=== PATIENT | male | born 1990 | race African-American/Black ===

== ENCOUNTER 2020-12-18 17:33 | Emergency (ER) | payer OTHER ==
[~2020-12-18] VITALS: Ht 170.2 cm; Wt 78.1 kg
[2020-12-18 17:49] VITALS: BP 135/92
[2020-12-18] MEDS ORDERED: PROPARACAINE OPHTH 0.5%, 15ML EACHEYE ONE (18:00)
[2020-12-18] MEDS ORDERED: FLUORESCEIN OPHTHALMIC 1 MG STRIP EACHEYE ONE (18:00)
[2020-12-18] MEDS ORDERED: FLUORESCEIN OPHTHALMIC 1 MG STRIP ONE ×2 (19:07→19:56)
[2020-12-18] MEDS ORDERED: PROPARACAINE OPHTH 0.5%, 15ML ONE (19:07)
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
--- NOTE | 2020-12-18 20:50 | NUR ---
Patient given discharge instructions and they have confirmed that they understand the instructions. Patient ambulatory with steady gait.
--- NOTE | 2020-12-18 20:58 | NUR ---
PT PROVIDED TAXI VOUCHER UPON D/C
== END 2020-12-18 21:09 | disposition home or self-care (01) ==
LOC: ED 21:02
DX: H57.12 Ocular pain, left eye (principal); H20.012 Primary iridocyclitis, left eye
CPT/HCPCS: 99283